=== PATIENT | female | born 1970 | race Caucasian/White ===

== ENCOUNTER 2019-05-11 15:20 | Emergency (ER) | payer BC ==
[~2019-05-11] VITALS: Ht 160 cm; Wt 88.0 kg
[~2019-05-11 15:20] MED LIST: CEFU250T PO; None per pt; TRAM50TA2 PO
--- NOTE | 2019-05-11 15:37 | NUR ---
48 Y/O FEMALE BIB AMBLANCE WITH C/O N/V. PER PT "I HAD A TOTAL KNEE REPLACEMENT TUESDAY 05/08. I GOT DISCHARGED WEDNESDAY BECAUSE THEY COULDN'T KEEP MY SATS UP. THE MEDICATIONS ARE MAKING ME NAUSEOUS ALSO. I'M ON CYCLOBENZAPRINE AND OXY. TODAY MY 65 LB DOG JUMPED UP ON MY KNEE TOO. MY FAMILY CALLED FOR THE MEDICS TO COME." PT PLACED ON CONT PULSE OX,NIBP. NO C/O D, SYNCOPE, CP, SOB.
[2019-05-11] MEDS ORDERED: SODIUM CHLORIDE FLUSH 10ML SYR IVF ONE (16:00)
[2019-05-11 16:02] LABS: MEAN CORPUSCULAR HEMOGLOBIN 29.3 pg (27.0-34.8); MEAN CORPUSCULAR HGB CONC 33.1 g/dL (32.4-35.8); MEAN CORPUSCULAR VOLUME 88.4 fL (80-100); MEAN PLATELET VOLUME 6.7 fL (7.4-10.4); PLATELET COUNT 258 x10^3/uL (130-400); RED CELL DISTRIBUTION WIDTH 12.9 % (9.6-15.2)
--- NOTE | 2019-05-11 16:10 | NUR ---
ASSISTED PT TO BR VIA WC. PT HAVING SIGNIFICANT PAIN AND SWELLING TO L KNEE. POC RV'WD WITH PT.
[2019-05-11 16:11] LABS: ALANINE AMINOTRANSFERASE 33 U/L (12-78); ALBUMIN 2.8 g/dL (3.4-5.0); ANION GAP 4 mmol/L (5-15); CALCIUM 7.9 mg/dL (8.5-10.1); CHLORIDE 104 mmol/L (98-107); CREATININE 0.68 mg/dL (0.55-1.02)
[2019-05-11 16:16] LABS: ALKALINE PHOSPHATASE 102 U/L (45-117); BILIRUBIN,TOTAL 0.5 mg/dL (0.2-1.0); TOTAL PROTEIN 6.4 g/dL (6.4-8.2)
[2019-05-11 16:29] LABS: MICROSCOPIC NOT IND
[2019-05-11 16:31] LABS: CULTURE INDICATED? NO
[2019-05-11 16:35] LABS: BASOPHILS # (AUTO) 0.02 x10^3/uL (0-0.1); BASOPHILS % (AUTO) 0 % (0-1); EOSINOPHILS # (AUTO) 0.06 x10^3/uL (0-0.4); EOSINOPHILS % (AUTO) 1 % (1-7); LYMPHOCYTES # (AUTO) 1.44 x10^3/uL (1-3.4); LYMPHOCYTES % (AUTO) 13 % (22-44); MD SCAN; MONOCYTES # (AUTO) 0.25 x10^3/uL (0.2-0.8); MONOCYTES % (AUTO) 2 % (2-9); NEUTROPHILS # (AUTO) 9.32 x10^3/uL (1.8-6.8); NEUTROPHILS % (AUTO) 84 % (42-75)
--- NOTE | 2019-05-11 16:57 | NUR ---
FAMILY AT BS. RV'WD POC WITH PT. PT REQUESTING PAIN MEDICATION FOR L KNEE, WILL NOTIFY ERP.
[2019-05-11] MEDS ORDERED: MORPHINE SULFATE 4 MG/ML, 1ML ONE (17:03)
[2019-05-11] MEDS ORDERED: ONDANSETRON 2MG/ML, 2ML ONE (17:03)
[2019-05-11] MEDS ORDERED: morphine SULFATE 10 MG/ML, 1ML IVPush ONE (17:30)
[2019-05-11] MEDS ORDERED: ONDANSETRON 2MG/ML, 2ML IVPush PRN (17:30)
--- NOTE | 2019-05-11 17:30 | NUR ---
ORTHO PA WAS IN TO SEE PT. PT MEDICATED WITH MORPHINE & ZOFRAN FOR L KNEE PAIN. SPO2 IN 80s ON RA. O2 IN PLACE AT 2L NC, SPO2 96%. FAMILY AT BS.
[2019-05-11 18:15] VITALS: BP 120/76
--- NOTE | 2019-05-11 18:38 | NUR ---
ERP WAS IN FOR RECHECK AND TO EVALUATE PT'S SPO2 READING. PER PT, SPO2 READING WAS LOW WHILE SHE WAS IN THE HOSPITAL S/P L TKA. WHEN PT STANDS AT SIDE OF BED, SPO2 IS 89-90% CURRENTLY ON RA. PT INSTRUCTED ON INCENTIVE SPIROMETER USE, WILL BE DISCHARGED.
--- NOTE | 2019-05-11 18:55 | NUR ---
D/C INSTRUCTIONS, MEDS & F/U APPT RV'WD WITH PT, SHE VERBALIZED UNDERSTANDING. RX GIVEN X3. L KNEE WRAPPED WITH KERLIX TO KEEP MEPILEX DSG INTACT. ADDITIONAL DRESSING SUPPLIES PROVIDED TO PT. ASSISTED PT OUT OF ED VIA WC WITH FAMILY.
== END 2019-05-11 18:57 | disposition home or self-care (01) ==
LOC: ED 18:39
DX: R11.2 Nausea with vomiting, unspecified (principal); R51 Headache; E86.0 Dehydration; R50.9 Fever, unspecified; R09.02 Hypoxemia; L53.8 Other specified erythematous conditions
CPT/HCPCS: 36415; 71045; 80053; 81003; 84702; 84703; 85025; 96374; 96375; 99284; J2270; J2405